=== PATIENT | female | born 1960 | race Caucasian/White ===

== ENCOUNTER → 2016-11-24 | Outpatient (CLI) | payer OTHER ==
[2016-11-25 01:31] LABS: Gliadin AB IgA, Deaminated NEGATIVE (NEGATIVE); Gliadin AB IgG, Deaminated NEGATIVE (NEGATIVE); Gliadin AB IgG, Unit <0.4 U/mL; Tis Transglutaminase IgA Unit <0.5 AI; Tis Transglutaminase IgG Unit <0.8 U/mL
[2016-11-25 01:57] LABS: Egg White IgE <0.10 kU/L
[2016-11-25 03:11] LABS: Peanut IgE <0.10 kU/L; Soybean IgE <0.10 kU/L
[2016-11-25 14:27] LABS: Almond IgE <0.35 kU/L (<0.35); Almond IgE Class CLASS 0; Cashew IgE <0.35 kU/L (<0.35); Cashew IgE Class CLASS 0; Crab IgE <0.35 kU/L (<0.35); Crab IgE Class CLASS 0; Pea IgE (Grn) <0.35 kU/L (<0.35); Pea(Grn) IgE Class CLASS 0; Pecan IgE <0.35 kU/L (<0.35); Pecan IgE Class CLASS 0
[2016-11-25 14:28] LABS: Beef IgE <0.35 kU/L (<0.35); Beef IgE Class CLASS 0; Lobster IgE <0.35 kU/L (<0.35); Lobster IgE Class CLASS 0; Onion IgE <0.35 kU/L (<0.35); Onion IgE Class CLASS 0; Potato IgE <0.35 kU/L (<0.35); Potato IgE Class CLASS 0
[2016-11-25 14:29] LABS: Avocado Class CLASS 0; Green Bean IgE <0.35 kU/L (<0.35); Green Bean IgE Class CLASS 0
== END | disposition home or self-care (01) ==
LOC: LABWHC1 16:08
PROVIDERS: ATTEND Allergy & Immunology
DX: R19.7 Diarrhea, unspecified (principal); T78.2XXA Anaphylactic shock, unspecified, initial encounter
CPT/HCPCS: 36415; 82784; 83516; 86003

== ENCOUNTER 2019-01-09 07:40 | Day surgery (SDC) | payer OTHER ==
[2019-01-05 14:48] VITALS: BMI 31.9
[~2019-01-09 07:40] MED LIST: LACTATED RINGERS 1,000 ML IV SCH; LIDOCAINE 1% 20 ML VIAL (10MG/ML) FOR IV START INTRADERMA PRN
[2019-01-09 08:03] VITALS: TEMP 96.3
[2019-01-09 08:04] LABS: Glucose,Whole Blood 145 mg/dL (75-99)
[2019-01-09] MEDS ORDERED: MIDAZOLAM 2 MG/2 ML VIAL ONE (08:16)
[2019-01-09] MEDS ORDERED: PROPOFOL 10 MG/ML 20 ML VIAL IV ONE (08:16)
--- NOTE | 2019-01-09 08:46 | P.PCN ---
Date of Procedure: 01/09/19 Description of Procedure: BRIEF HISTORY: Patient is a 58-year-old pleasant female scheduled for an elective colonoscopy as a part of evaluation for colorectal neoplasia. Last colonoscopy in 2002 significant for low-grade internal hemorrhoids. She denies any family history of colon cancer, change in bowel habits with blood per rectum. PROCEDURE PERFORMED: Colonoscopy with polypectomy. PREOPERATIVE DIAGNOSIS: Screening for malignant neoplasm colon, last colonoscopy 2002. ESTIMATED BLOOD LOSS: Minimal. IV sedation per Anesthesia. PROCEDURE: After informed consent was obtained, the patient, was brought into the endoscopy unit. IV sedation was administered by Anesthesia under continuous monitoring. Digital rectal examination was normal. Initially the Olympus CF-190 flexible video colonoscope was then inserted in the rectum, gradually advanced into the cecum without any difficulty. Careful examination was performed as the scope was gradually being withdrawn. Ileocecal valve and the appendiceal orifice were visualized and appeared normal, with the terminal ileum was intubated and appeared normal. Prep was excellent. Mucosa of the cecum, ascending colon, transverse colon, descending colon, sigmoid colon, and rectum appeared normal. A diminutive 2 mm sessile rectal polyp was removed with cold forcep polypectomy. Retroflexion was performed in the rectum and no lesions were seen, low-grade internal hemorrhoids noted. The patient tolerated the procedure well. IMPRESSION: Normal-appearing colon from rectum to cecum. Diminutive rectal polyp removed with cold forceps. RECOMMENDATIONS: Findings of this examination were discussed with the patient and her daughter. Okay to resume diet. Await pathology from polypectomy. Anticipate repeat colonoscopy in 5-10 years pending pathology from polypectomy.
[2019-01-09 08:58] VITALS: RESP 18
[2019-01-09 09:00] VITALS: BP 112/75; PULSE 82
== END 2019-01-09 09:15 | disposition home or self-care (01) ==
LOC: ORWHC2ENDO 07:40
PROVIDERS: ATTEND Internal Medicine
DX: Z12.11 Encounter for screening for malignant neoplasm of colon (principal); K62.1 Rectal polyp; K64.8 Other hemorrhoids; E11.9 Type 2 diabetes mellitus without complications; F32.9 Major depressive disorder, single episode, unspecified; I10 Essential (primary) hypertension; F17.210 Nicotine dependence, cigarettes, uncomplicated; Z79.84 Long term (current) use of oral hypoglycemic drugs; Z79.82 Long term (current) use of aspirin; Z79.899 Other long term (current) drug therapy; Z88.0 Allergy status to penicillin
CPT/HCPCS: 88305; 45380; J2250; J2704

== ENCOUNTER → 2023-06-27 | Outpatient (CLI) | payer OTHER ==
--- NOTE | 2023-06-27 14:03 | XR ---
EXAMINATION TYPE: XR cervical spine w flex/ext DATE OF EXAM: 06/27/2023 COMPARISON: NONE HISTORY: Pain TECHNIQUE: 18 views are submitted including flexion and extension lateral views. FINDINGS: The odontoid is intact. There are no compression deformities. The prevertebral soft tissue structur es are within normal limits. Diffuse osteopenia. Straightening of the cervical spine with fusion C3-C4. Spurring of virtually all segments with modera te to severe degenerative disc disease C5-6 and C6-C7. There is be fusion of the posterior elements o f C3-C4. Foraminal encroachment particularly noted at C5-6 and C6-C7 bilaterally. Metallic density overlying t he anterior chest on the swimmer's view is incompletely evaluated. Retrolisthesis of C5 relative to C6 is similar on neutral and flexion views it becomes more exaggerat ed on extension views. Grade 1 anterolisthesis C2-C3 more pronounced on the flexion views and corrects on extension views. IMPRESSION: 1. Straightening the cervical spine with apparent fusion of C3-C4. 2. Severe degenerative disc disease C5-C6 and at C6-C7 with significant foraminal encroachment. Retro listhesis C5-C6 becomes more pronounced on extension views.
== END | disposition home or self-care (01) ==
LOC: RADXRMAIN 12:21
PROVIDERS: ATTEND Neurological Surgery
DX: M50.322 Other cervical disc degeneration at C5-C6 level (principal); M43.12 Spondylolisthesis, cervical region; Z98.1 Arthrodesis status
CPT/HCPCS: 72052